=== PATIENT | male | born 1960 | race African-American/Black ===

== ENCOUNTER 2019-02-20 16:11 | Emergency (ER) | payer SELFPAY ==
[~2019-02-20] VITALS: Ht 180.3 cm; Wt 86.0 kg
[2019-02-20 17:02] LABS: HEMATOCRIT 44.8 % (39.0-50.0); IMMATURE GRANULOCYTES 0.2 % (0.0-5.0); MEAN CELL VOLUME 92.9 fL CALC (80.0-100.0); MEAN CORPUSCULAR HGB CONC 31.3 g/L CALC (32.0-36.0); NEUT# 2.07 thou/uL (1.82-7.42); RED BLOOD COUNT 4.82 mill/uL (4.70-6.10); RED CELL DISTRI WIDTH 13.3 % (11.5-15.5)
[2019-02-20 17:23] LABS: ANION GAP 12 (6-22 (CALC)); BUN 16 mg/dL (9-20); BUN/CREATININE RATIO 13 (12-20 (CALC)); CARBON DIOXIDE 29 mmol/l (22-30); CHLORIDE 104 mmol/l (95-108); CREATININE 1.3 mg/dL (0.7-1.3); GFR 57 ML/MIN (>=60 (CALC)); GFR FOR AFR.AMER. > 60 ML/MIN (>=60 (CALC)); POTASSIUM 4.4 mmol/l (3.5-5.1); SODIUM 141 mmol/l (137-146)
[2019-02-20] MEDS ORDERED: NORVASC2.5 M1 PO (17:34)
[2019-02-20 17:52] VITALS: BP 155/78
== END 2019-02-20 18:02 | disposition home or self-care (01) | DRG 305 ==
LOC: ED 16:11
PROVIDERS: Family Medicine
DX: I10 Essential (primary) hypertension (principal)

== ENCOUNTER 2019-08-06 | Emergency (ER) | payer MEDICAID ==
[~2019-08-06] MED LIST: NORVASC2.5 M1 PO
[2019-08-06 10:48] LABS: HEMATOCRIT 45.9 % (39.0-50.0); HEMOGLOBIN 14.6 g/dl (14.0-18.0); IMMATURE GRANULOCYTES 0.2 % (0.0-5.0); MEAN CELL VOLUME 94.4 fL CALC (80.0-100.0); MEAN CORPUSCULAR HGB CONC 31.8 g/L CALC (32.0-36.0); NEUT# 2.57 thou/uL (1.82-7.42); RED BLOOD COUNT 4.86 mill/uL (4.70-6.10); RED CELL DISTRI WIDTH 13.2 % (11.5-15.5)
[2019-08-06 11:06] LABS: ANION GAP 13 (6-22 (CALC)); BUN 15 mg/dL (9-20); BUN/CREATININE RATIO 12 (12-20 (CALC)); CARBON DIOXIDE 28 mmol/l (22-30); CHLORIDE 103 mmol/l (95-108); CREATININE 1.3 mg/dL (0.7-1.3); GFR 57 ML/MIN (>=60 (CALC)); GFR FOR AFR.AMER. > 60 ML/MIN (>=60 (CALC)); SODIUM 140 mmol/l (137-146)
[2019-08-06] MEDS ORDERED: NORVASC5 M1 PO (11:25)
[2019-08-06] MEDS ORDERED: FLEXERIL5 M1 PO (11:25)
== END 2019-08-06 11:45 | disposition home or self-care (01) ==
PROVIDERS: Family Medicine
DX: M54.5 Low back pain (principal); I10 Essential (primary) hypertension; T46.1X6A Underdosing of calcium-channel blockers, initial encounter; Z91.128 Patient's intentional underdosing of medication regimen for other reason

== ENCOUNTER 2024-03-19 05:34 | Emergency (ER) | payer SELFPAY ==
[2024-03-19 05:34] VITALS: BP 0/0
[~2024-03-19 05:34] MED LIST changes: +FLEXERIL5 M1 PO; +NORVASC5 M1 PO
[2024-03-19] MEDS ORDERED: SODIUM BICARBONATE 8.4% 50 ML/SYR IV ONE (06:23)
[2024-03-19] MEDS ORDERED: EPINEPHrine HCL 0.1 MG/ML 10 ML SYR IV ONE (06:23)
== END 2024-03-19 06:23 | disposition expired | DRG 298 ==
LOC: ED 05:34
PROC: 5A12012 Performance of Cardiac Output, Single, Manual (ICD-10-PCS; principal; 2024-03-19)
DX: I46.9 Cardiac arrest, cause unspecified (principal); I45.4 Nonspecific intraventricular block; I10 Essential (primary) hypertension